=== PATIENT | male | born 1945 | race Caucasian/White ===

== ENCOUNTER 2019-01-28 11:17 | Emergency (ER) | payer OTHER ==
[2019-01-28] MEDS ORDERED: ISOVUE-370 76%-LOCM 1 ML ONE (12:14)
[2019-01-28 13:49] LABS: #Eosinphils 0.2 thou/uL (0.0-0.7); #Lymphocytes 1.1 thou/uL (1.20-3.40); #Neutrophils 11.8 thou/uL (1.40-6.50); %Basophils 0.2 % (0.0-1.0); %Eosinophils 1.6 % (0.0-10.0); %Lymphocytes 7.3 % (21.0-51.0); %Monocytes 13.1 % (0.0-10.0); %Neutrophils 77.8 % (42.0-75.0); Mean Corpuscular HGB CONC 32.1 g/dL (32.0-36.0); Mean Corpuscular Volume 93.5 fL (78.0-98.0); Mean Platelet Volume 8.1 fL (7.4-10.4); Platelet Count 267 thou/uL (130-400); Red Blood Cell (RBC) Count 4.35 mill/uL (4.70-6.10); White Blood Cell (WBC) Count 15.2 thou/uL (4.8-10.8)
--- NOTE | 2019-01-28 14:11 | RAD ---
PORTABLE CHEST 1 VIEW: Date: 01/28/19 Time: 1340 hours HISTORY: Nausea and vomiting. FINDINGS: There are changes of median sternotomy. The heart size is normal. The aorta is tortuous. The lungs ar e well expanded without lobar consolidation, pneumothoraces, or pleural effusions. There are postop c hanges of right rotator cuff repair. IMPRESSION: No acute process. POS: SHELL
[2019-01-28 14:12] LABS: ALT (SGPT) Less than 7 U/L (8-55); AST (SGOT) 12 U/L (5-34); Albumin 4.1 g/dL (3.4-4.8); Alkaline Phosphatase 91 U/L (40-110); Anion Gap 11 mmol/L (10-20); BUN (Urea Nitrogen) 30 mg/dL (8.4-25.7); Bilirubin, Total 0.6 mg/dL (0.2-1.2); Calc. Creatinine Clearance 0 mL/min (70-130); Calcium 9.1 mg/dL (7.8-10.44); Carbon Dioxide 27 mmol/L (23-31); Chloride 100 mmol/L (98-107); Estimated GFR-MDRD 30; Globulin 2.9 g/dL (2.4-3.5); Glucose 137 mg/dL (83-110); Lipase 18 U/L (8-78); Potassium 4.3 mmol/L (3.5-5.1); Sodium 134 mmol/L (136-145)
--- NOTE | 2019-01-28 15:29 | CT ---
CT ABDOMEN AND PELVIS WITH IV CONTRAST: Date: 01/28/19 HISTORY: Abdominal pain. Nausea and vomiting. FINDINGS: The lung bases are clear. There are tiny calcified gallstones. There is a 15 mm low density lesioning the dome of the liver which does not meet criteria for a simpl e cyst. The spleen, pancreas, and adrenal glands are normal. There are small cysts in the kidney. No free air is seen in the abdomen or pelvis. No lymphadenopathy is noted. There is a small amount of free fluid in the pelvis. There are vascular calcifications with a 3.3 cm infrarenal abdominal aorti c aneurysm. Degenerative changes represent in the spine. The small bowel loops are dilated with a transition zone in the mid ileum. A right-sided inguinal her uriel is present containing fluid. IMPRESSION: 1. Findings are suspicious for small bowel obstruction. 2. Cholelithiasis. 3. Small renal cysts. 4. 3.3 cm abdominal aortic aneurysm. 5. Indeterminate 15 mm liver lesion. This should be evaluated with ultrasound on a nonemergent basis . 6. Free fluid in the pelvis. POS: ROBERTO
[2019-01-28] MEDS ORDERED: Famotidine/PF 20 mg/2ml Vial ONE (18:39)
== END 2019-01-28 18:54 | disposition short-term general hospital (02) ==
LOC: ERS 11:17 → EEVIPCON 11:17 → ERS 18:54
DX: K56.609 Unspecified intestinal obstruction, unspecified as to partial versus complete obstruction (principal); I48.91 Unspecified atrial fibrillation; K21.9 Gastro-esophageal reflux disease without esophagitis; G20 Parkinson's disease; F32.9 Major depressive disorder, single episode, unspecified; Z79.899 Other long term (current) drug therapy; Z79.82 Long term (current) use of aspirin
CPT/HCPCS: 36415; 71045; 74177; 80053; 83690; 84484; 85025; 93005; 96374; Q9966; S0028